=== PATIENT | male | born 1985 | race Caucasian/White ===

== ENCOUNTER → 2018-04-30 | Outpatient (CLI) | payer OTHER ==
--- NOTE | 2018-05-01 06:05 | REP ---
Clinical: Dyspnea. Inhalational exposure. Technique: Axial noncontrast images from the thoracic inlet to the upper abdomen with coronal and sagittal re-formations. Comparison: None. Findings: The bilateral lung quan are relatively well aerated. There is a subtle area of airspace disease within the lingula which may reflect transient/resolving atelectasis or pneumonia. Subtle perihilar/infrahilar early bronchiectasis (left greater than right) is suggested. No further consolidation, nodule or mass lesion. No pleural effusion. No pneumothorax. Tracheobronchial tree is patent. No obvious adenopathy. Mediastinum demonstrates normal thoracic aorta, pulmonary vasculature and heart/pericardium. Limited upper abdomen demonstrates normal bilateral adrenal glands. Musculoskeletal structures are intact. Impression: Subtle nonspecific area of opacity in the lingula along with very mild possible early perihilar and left infrahilar bronchiectasis. Electronically Signed by Sam Augustin MD 05/01/2018 05:57 A
== END ==
LOC: M RAD 15:10
PROVIDERS: ATTEND Physician Assistant
DX: R06.00 Dyspnea, unspecified (principal); Z65.5 Exposure to disaster, war and other hostilities; R91.8 Other nonspecific abnormal finding of lung field

== ENCOUNTER → 2018-05-14 | Outpatient (CLI) | payer OTHER ==
[~2018-05-14] MED LIST: METHACHOLINE KIT (J7674) INH ONE
--- NOTE | 2018-05-14 14:31 | PFTRPT ---
Height: 71.00 Inches Weight: 215.00 Lbs BSA: 2.17 Diagnosis: R06.00 DATE OF PROCEDURE: 05/14/2018 ORDERED BY: Deion Savage INTERPRETATION: Study of excellent technical quality. Under protocol, methacholine was administered. At a dose of 2.5 mg or 13.875 CDUs, a 22% decline in the FEV1 was noted. PC of 1.85 does meet criteria for a positive study. Flow rates did return to baseline post bronchodilator administration. IMPRESSION: Positive methacholine challenge study. MTDD
== END ==
LOC: M CARPUL 13:00
PROVIDERS: ATTEND Physician Assistant
DX: R94.2 Abnormal results of pulmonary function studies (principal); R06.00 Dyspnea, unspecified
CPT/HCPCS: 94070; J7674